=== PATIENT | female | born 1930 | race African-American/Black ===

== ENCOUNTER 2017-03-21 12:17 | Emergency (ER) | payer OTHER ==
[~2017-03-21] VITALS: Ht 162.6 cm; Wt 72.0 kg
[2017-03-21 14:14] VITALS: BP 157/84
== END 2017-03-21 14:59 | disposition left against medical advice (07) ==
LOC: ER 12:35
DX: R42 Dizziness and giddiness (principal); Z53.21 Procedure and treatment not carried out due to patient leaving prior to being seen by health care provider